=== PATIENT | female | born 1970 | race Caucasian/White ===

== ENCOUNTER 2024-02-07 05:28 | Day surgery (SDC) ==
[~2024-02-07] VITALS: Ht 172.7 cm; Wt 84.1 kg
[2024-02-07] MEDS ORDERED: RINGERS SOLUTION,LACTATED 500 ML IV ONE (05:30)
[2024-02-07] MEDS ORDERED: CeFAZolin 2 GM/DEXTROSE 50 ML IV ONE ×2 (06:30→07:00)
[2024-02-07] MEDS ORDERED: RINGERS SOLUTION,LACTATED 1,000 ML IV ONE (06:30)
[2024-02-07] MEDS ORDERED: PROPOFOL 1% 20 ML VIAL IVP ONE (06:31)
[2024-02-07] MEDS ORDERED: MIDAZOLAM HCL 2 MG/2 ML VIAL ONE (06:31)
[2024-02-07] MEDS ORDERED: LIDOCAINE/PF 2% 5 ML VIAL ONE (06:31)
[2024-02-07] MEDS ORDERED: ONDANSETRON HCL 4 MG/2 ML VIAL ONE (06:31)
[2024-02-07] MEDS ORDERED: DEXAMETHASONE SOD PHOS 4 MG/ML VIAL ONE (06:31)
[2024-02-07] MEDS ORDERED: ROCURONIUM BROMIDE 10 MG/ML 5 ML VIAL ONE (06:31)
[2024-02-07] MEDS ORDERED: FentaNYL CITRATE PF 100 MCG/2 ML VIAL ONE (06:31)
[2024-02-07] MEDS ORDERED: SUGAMMADEX SODIUM 200 MG/2 ML VIAL IVP ONE (06:31)
[2024-02-07] MEDS ORDERED: ONDA-104 PO (06:58)
[2024-02-07] MEDS ORDERED: DOCU-385 PO (06:58)
[2024-02-07] MEDS ORDERED: CYCL-448 PO (06:58)
[2024-02-07] MEDS ORDERED: PERCT PO (06:58)
[2024-02-07] MEDS ORDERED: ALBU18HF12 IH (07:03)
[2024-02-07] MEDS ORDERED: GLIP10TA16 PO (07:03)
[2024-02-07] MEDS ORDERED: SITA50 PO (07:03)
[2024-02-07] MEDS ORDERED: CHLO25TA3 PO (07:03)
[2024-02-07] MEDS ORDERED: EMPA25TA3 PO (07:03)
[2024-02-07] MEDS ORDERED: METF-81 PO (07:03)
[2024-02-07] MEDS: CHLORHEXIDINE GLUCONATE 2% TOWELETTE [2'S/6'S] TP ONE (07:06)
[2024-02-07] MEDS: ETHYL ALCOHOL 62% ANTISEPTIC NASAL SANITIZER 0.6 ML AMPUL NASAL ONE (07:07)
[2024-02-07] MEDS: RINGERS SOLUTION,LACTATED 1,000 ML IV ONE (07:14)
[2024-02-07 07:25] LABS: GLUCOMETER DEV NAME(LOC) SDS.; GLUCOSE,POINT OF CARE 176 MG/DL (70-110)
[2024-02-07] MEDS ORDERED: IOHEXOL 240 MG/ML 20 ML VIAL ONE ×2 (07:27→07:33)
[2024-02-07] MEDS: BUPIVACAINE 0.25%/EPI 1:200,000/PF 30 ML VIAL ONE (09:11)
[2024-02-07] MEDS ORDERED: FentaNYL CITRATE PF 100 MCG/2 ML VIAL IVP PRN (09:30)
[2024-02-07] MEDS ORDERED: MEPERIDINE-PF 25 MG/ML VIAL IVP PRN (09:30)
[2024-02-07] MEDS ORDERED: HYDROmorphone HCL 2 MG/ML SYRINGE IVP PRN (09:30)
[2024-02-07] MEDS: OxyCODONE HCL/ACETAMINOPHEN 10-325 MG TABLET PO ONE (11:29)
[2024-02-07] MEDS ORDERED: OXYGEN THERAPY IH SCH (20:00)
== END 2024-02-07 12:40 | disposition home or self-care (01) ==
LOC: SURGERY 05:28
PROVIDERS: ATTEND Neurological Surgery
DX: S22.080A Wedge compression fracture of T11-T12 vertebra, initial encounter for closed fracture (principal); M54.50 Low back pain, unspecified; I10 Essential (primary) hypertension; E11.9 Type 2 diabetes mellitus without complications; E78.00 Pure hypercholesterolemia, unspecified; J45.909 Unspecified asthma, uncomplicated; Z79.82 Long term (current) use of aspirin; Z79.84 Long term (current) use of oral hypoglycemic drugs; Z79.899 Other long term (current) drug therapy; Z90.49 Acquired absence of other specified parts of digestive tract; Z98.818 Other dental procedure status; Z88.1 Allergy status to other antibiotic agents; X58.XXXA Exposure to other specified factors, initial encounter; Y93.89 Activity, other specified; Y92.89 Other specified places as the place of occurrence of the external cause; Y99.8 Other external cause status
CPT/HCPCS: 22513; 82962; C9290; J2704; J1100; J3010; J3490 ×3; J2250; J2405; J7120; J0690; Q9966; C1713